=== PATIENT | female | born 1985 | race Caucasian/White ===

== ENCOUNTER 2017-10-18 14:34 | Emergency (ER) | payer OTHER ==
[2017-10-18 15:50] LABS: URINE MICROSCOPIC INDICATED? YES; URINE SOURCE CLEAN C
[2017-10-18 15:52] LABS: URINE BILIRUBIN NEGATIVE (NEGATIVE); URINE BLOOD SMALL (NEGATIVE); URINE GLUCOSE (UA) NEGATIVE (NEGATIVE); URINE KETONE NEGATIVE (NEGATIVE); URINE LEUKOCYTE ESTERASE NEGATIVE (NEGATIVE); URINE NITRATE NEGATIVE (NEGATIVE); URINE PROTEIN NEGATIVE (NEGATIVE); URINE UROBILINOGEN 0.2 E.U./dL (0.2 - 1.0)
[2017-10-18 15:58] LABS: URINE COLOR YELLOW
[2017-10-18 15:59] LABS: URINE BACTERIA OCCASIONAL /hpf (NONE SEEN); URINE CLARITY HAZY (CLEAR); URINE EPITHELIAL CELLS RARE /lpf (FEW); URINE WBC 0-2 /hpf (0-5)
--- NOTE | 2017-10-18 16:19 | ED Physician Chart ---
ED Chief Complaint/HPI - Patient Information Date Seen:: 10/18/17 Time Seen:: 16:05 History of Present Illness:: THE PT AWOKE THIS AM WITH SEVERE STABBING PAIN IN THR RT LOWERE BACK. THE PT RATES THE PAIN A 9/10 IN SEVERITY. THE PAIN IS SHARP AND RADIATES INTO THE REGGION OF THE RT BUTTOCK AND CONTINUES DOWN INTO THE RT. LOWER EXTREMITY. SHE DENIES AND TRAUMATIC CAUSE OF THE PAIN. THE PAIN IS WORWE WITH MOVEMENT. THE PT HAD A SIMILAR EPISODE OF PAIN A FEW YRS AGO AND WAS ADVISED THAT SHE HAD A PARTIALLY OBSTRUCTED KIDNEY AT THAT TIME. THAT PAIN SPONTANEOUSLY RESOLVED WITHOUT FUTHER MEDICAL ATTENTION. THE PT DENIED ANY ASSOCIATED FEVER, CHILLS OR SWEATING. THE PT DID HAVE NAUSEA AND VOMITED X 1 PRIOR TO ARRIVAL IN THE ER. THE PT DENIES ANY IV DRUG ABUSE. THERE IS NO ASSOCIATED DYSURIA, HEMATURIA POST VOID URGENCY OR URINARY INCONTENANCE OR RETENSION. Allergies:: Allergies Allergy/AdvReac Type Severity Reaction Status Date / Time metoclopramide [From Reglan] Allergy Verified 10/18/17 15:11 Penicillins [PCN] Allergy Verified 10/18/17 15:11 prochlorperazine Allergy Verified 10/18/17 15:11 [From Compazine] Vitals:: Vital Signs - 8 hr 10/18/17 15:11 Temp 97.8 F HR 92 RR 19 BP 119/85 O2 Sat % 98 ED Review of Systems - Review of Systems General/Constitutional: No fever, No chills, No weakness, No diaphoresis, Loss of appetite Skin: No skin lesions, No bruising Head: No headache Eyes: No loss of vision, No pain, No diplopia ENT: No sore throat Neck: No stiffness Cardio Vascular: No chest pain, No palpitations, No orthopnea GI: Nausea, Vomiting, No diarrhea Biometric 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 P ) Family History: None Social History: Employed Surgical History: None ( refer to nursing notes. ) Psychiatricy History: Schizophrenia, Bipolar Family Medical History - Family Member Mother History Unknown: Yes Other Medical History: No known family medical hsitory. ED Physical Exam - Physical Examination General/Constitutional: Awake, Well-developed, well-nourished, Alert, Ambulatory Other Gen/Cons comments:: Appeared to be in mild to moderate distress from her complained of back pain. P Head: Atraumatic Eyes: Lids, conjuctiva normal, PERRL, EOMI Other Eyes comments:: SCLERA AND ENTERIC with no nystagmus. P Skin: Nl inspection, No rash, No skin lesions, No ecchymosis, Well hydrated, No lymphadenopathy ENMT: External ears, nose nl, Nasal exam nl, Lips, teeth, gums nl, Oropharynx nl Other ENMT comments:: Teeth in good repair. Neck: Nontender, Full ROM w/o pain, No JVD, No nuchal rigidity, No bruit, No mass Respiratory: Nl effort/Exclusion, Clear to Auscultation, No Wheeze/Rhonchi/Rales Cardio Vascular: RRR (NO Ectopy.), No murmur, gallop, rubs, NL S1 S2 Other Cardio Vascular comments:: Good peripheral pulses in all four extremities. R GI: No tenderness/rebounding/guarding, No organomegaly, No hernia, Normal BS's, Nondistended, No mass/bruits, No McBurney tenderness Other GI comments:: Rectal exam deferred at my discretion. ED Labs/Radiology/EKG Results - Lab Results Results: Laboratory Tests 10/18/17 15:20 Urine Source CLEAN C Urine Color YELLOW Urine Clarity HAZY Urine pH 5.0 Ur Specific Raymond 1.025 Urine Protein NEGATIVE Urine Glucose (UA) NEGATIVE Urine Ketones NEGATIVE Urine Blood SMALL H Urine Nitrate NEGATIVE Urine Bilirubin NEGATIVE Urine Urobilinogen 0.2 Ur Leukocyte Esterase NEGATIVE Urine RBC 5-10 H Urine WBC 0-2 Ur Epithelial Cells RARE Urine Bacteria OCCASIONAL Urinalysis shows 5 to 10 red cells which would be consistent with nephrolithiasis. Bacteria count occasional and WBC count of 0 to 2 not consistent with UTI or pyelonephritis. Renal ultrasound had been ordered but patient left prior to testing or results. R ED Assessment - Assessment General Assessment: CASE SUMMARY: THIS 38-YEAR-OLD FEMALE PRESENTS WITH SEVERE LOW BACK PAIN WHICH HE HAS EXPERIENCED ON ONLY ONE PRIOR EPISODE. THE PATIENT HAD A SMALL DEGREE OF HEMATURIA WITH ONLY A FEW BACTERIA OR WHITE CELLS. THE PATIENT'S PAIN WAS ADDRESSED WITH 30 MG OF TORADOL WITH MARKED IMPROVEMENT IN PAIN. THE PATIENT WAS CONFRONTED BY NURSING STAFF THAT SHE WAS TESTING POSITIVE FOR OPIATES AND DIAZEPAM. AT THIS POINT THE PATIENT BECAME ARGUMENTATIVE AND LEFT THE EMERGENCY DEPARTMENT AGAINST MEDICAL ADVICE. SHE WAS ADVISED THAT SHE CAN RETURN TO THE EMERGENCY DEPARTMENT WITH NO PENALTY IF SHE CHANGED HER MIND. DISCHARGED IN OTHERWISE STABLE CONDITION. MEDICAL DECISION-MAKING: DDX for LOW BACK PAIN. NOT Open fracture based on history and physical examination. NOT Epidural abscess based on the patient's history, physical examination lack of fever, and normal white count. NOT PYELONEPHRITIS BASED ON RESULTS OF THE URINALYSIS. NOT AAA BASED on history and exam. ED Septic Shock - . Is Septic Shock (SBP<90, OR Lactate>4 mmol\L) present?: No - <6hrs of presentation: Vital Signs: Vital Signs - 8 hr 10/18/17 15:11 Temp 97.8 F HR 92 RR 19 BP 119/85 O2 Sat % 98 ED Discharge Plan - Patient Disposition Admit/Discharge/Transfer: AGAINST MEDICAL ADVICE Condition at Disposition: Improved
[2017-10-18 16:29] LABS: % BASOPHILS 0.5 % (0.0-2.0); % EOSINOPHILS 2.7 % (0.0-5.0); % LYMPHOCYTES 37.4 % (20.0-50.0); % MONOCYTES 12.1 % (2.0-10.0); % NEUTROPHILS 47.3 % (40.0-80.0); EOSINOPHILE ABSOLUTE 0.2 Th/cmm (0.1-0.4); HEMOGLOBIN 12.6 gm/dL (12-16); LYMPHOCYTE ABSOLUTE 2.1 Th/cmm (1.5-3.0); MEAN CELL VOLUME 97.4 fl (81-100); MEAN CORPUSCULAR HEMOGLOBIN 33.3 pg (27.0-31.0); MEAN CORPUSCULAR HGB CONC 34.2 pg (28.0-36.0); MEAN PLATELET VOLUME 7.1 fl; MONOCYTE ABSOLUTE 0.7 Th/cmm (0.3-1.0); NEUTROPHILE ABSOLUTE 2.6 Th/cmm (1.8-8.0); PLATELET COUNT 254 Th/cmm (150-400); RED CELL DISTRIBUTION WIDTH 11.7 % (11.5-20.0); WHITE BLOOD COUNT 5.6 Th/cmm (4.8-10.8)
[2017-10-18 16:36] LABS: AMPHETAMINE URINE NEGATIVE (NEGATIVE); BARBITURATES URINE NEGATIVE (NEGATIVE); COCAINE METABOLITE QUAL URINE NEGATIVE (NEGATIVE); METHAMPHETAMINES QUAL URINE NEGATIVE (NEGATIVE); OPIATES (MORPHINE) QUAL. URINE POSITIVE (NEGATIVE); PHENCYCLIDINE (PCP) URINE NEGATIVE (NEGATIVE); TRICYCLICS (TCA) QUAL. URINE POSITIVE (NEGATIVE)
[2017-10-18 16:37] LABS: BENZODIAZEPINES QUAL URINE POSITIVE (NEGATIVE); CANNABINOID THC NEGATIVE (NEGATIVE); METHADONE URINE NEGATIVE (NEGATIVE)
[2017-10-18 16:40] LABS: ALB/GLOB RATIO 1.6 (1.0-1.8); ALBUMIN 4.4 gm/dL (3.7-5.3); ALKALINE PHOSPHATASE 88 U/L (34-104); BILIRUBIN,TOTAL 0.4 mg/dL (0.3-1.0); BUN - UREA NITROGEN 18 mg/dL (7-25); CALCIUM SERUM 9.4 mg/dL (8.6-10.3); CARBON DIOXIDE 25.3 mEq/L (21.0-31.0); CHLORIDE 103 mEq/L (98-107); CREATININE - SERUM 0.6 mg/dL (0.6-1.2); GFR AFRICAN-AMERICAN > 60.0 ml/min (>90); GFR NON AFRICAN-AMERICAN > 60.0 ml/min; GLUCOSE 97 mg/dL (70-105); POTASSIUM SERUM 4.3 mEq/L (3.5-5.1); SGOT 67 U/L (13-39); SGPT/ALT 105 U/L (7-52); SODIUM SERUM 135 mEq/L (136-145); TOTAL PROTEIN,SERUM 7.2 gm/dL (6.0-8.3)
== END 2017-10-18 17:15 | disposition left against medical advice (07) ==
LOC: ER 14:34
DX: R31.9 Hematuria, unspecified (principal); M54.5 Low back pain; R11.2 Nausea with vomiting, unspecified; Z88.0 Allergy status to penicillin; Z88.8 Allergy status to other drugs, medicaments and biological substances
CPT/HCPCS: 99284; 96374; 36415; 80307; 85025; 81001; 80053; J1885; Z7502